=== PATIENT | female | born 1950 | race Caucasian/White ===

== ENCOUNTER → 2017-02-14 | Outpatient (CLI) | payer MEDICARE, OTHER ==
[~2017-02-14] MED LIST: ARIPIPRAZOLE5 MG PO; BUPROPION HCL150 M1 PO; CPAP INH; DELTASONE10 MG PO; DRISDOL 5050000 UNIT PO; GABAPENTIN600 MG PO; K-TAB ER20 MEQ PO; LASIX40 MG PO; MS CONTIN15 MG PO; NEURONTIN300 MG PO; NORTRIPTYLINE H10 MG PO; OMEPRAZOLE40 MG PO; PAXIL20 MG PO; PLAVIX75 MG PO; PRADAXA75 MG PO; PRAVASTATIN SOD10 MG PO; REQUIP5 MG PO; TIZANIDINE HCL4 M1 PO; TOPROL XL25 MG PO; ULTRAM50 MG PO; VITAMIN D; WELLBUTRIN XL150 MG PO; ZANTAC (NON-FO150 MG PO
== END | disposition disaster alternative care site (69) ==
LOC: GOPD 01-28 08:00
PROC: 3E0S33Z Introduction of Anti-inflammatory into Epidural Space, Percutaneous Approach (ICD-10-PCS; principal; 2017-02-14)
PROC: 3E0S3BZ Introduction of Anesthetic Agent into Epidural Space, Percutaneous Approach (ICD-10-PCS; 2017-02-14)
DX: M54.2 Cervicalgia (principal); R20.0 Anesthesia of skin; R20.2 Paresthesia of skin
CPT/HCPCS: J1040